=== PATIENT | female | born 2000 | race Caucasian/White ===

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

== ENCOUNTER → 2022-04-14 17:53 | Outpatient (CLI) | payer OTHER, SELFPAY ==
[2022-04-14 20:25] LABS: Urine N gonorrhoeae NOT DETECTED
[2022-04-14 20:27] LABS: Urine Chlamydia NOT DETECTED
[2022-04-15 15:31] LABS: HSV 2 IGG AB < 0.91 index (0.00-0.90)
[2022-04-15 16:07] LABS: Hepatitis B Surface Antigen NEGATIVE s/c (NEGATIVE)
[2022-04-15 16:25] LABS: HIV 1 & 2 Ab/Ag 4th Gen Combo NEGATIVE (NEGATIVE); Hep C Virus Ab w/Reflex Quant NEGATIVE s/c (NEGATIVE)
[2022-04-16 06:09] LABS: RPR Screen Non Reactive (Non Reactive)
== END ==
PROVIDERS: Family Provider Family Medicine; PCP Family Medicine; Referring Provider Nurse Practitioner Family; Visit Provider Nurse Practitioner Family
DX: Z11.3 Encounter for screening for infections with a predominantly sexual mode of transmission (principal)
CPT/HCPCS: 36415; 86592; 86695; 86696; 86803; 87340; 87389; 87491; 87591

== ENCOUNTER → 2022-06-01 14:14 | Outpatient (CLI) | payer OTHER, SELFPAY ==
[2022-06-01 15:30] LABS: Add Manual Diff / Slide Review NO; Basophils Absolute Auto 100 /uL (0-100); Basophils Percent Auto 1.3 % (0-2); Eosinophils Absolute Auto 100 /uL (0-450); Eosinophils Percent Auto 1.7 % (2-4); Hematocrit 37.3 % (36-46); Hemoglobin 12.6 g/dL (12.0-16.0); Lymphocytes Absolute Auto 2300 /uL (1100-4500); Lymphocytes Percent Auto 40.2 % (25-40); Mean Corpuscular HGB Conc 33.7 % (30-36); Mean Corpuscular Hemoglobin 30.1 PG (26-34); Mean Corpuscular Volume 89.1 fL (80-100); Monocytes Absolute Auto 500 /uL (0-900); Monocytes Percent Auto 8.2 % (3-14); Neutrophils Absolute Auto 2800 /uL (1500-7000); Neutrophils Percent Auto 48.6 % (50-75); Platelet Count 285 X10^3/uL (150-400); Red Blood Cell Count 4.19 X10^6/uL (4.0-5.2); Red Cell Distribution Width 13.3 % (11.6-14.8); White Blood Cell Count 5.7 X10^3/uL (4.5-11.0)
[2022-06-01 16:15] LABS: HEMOLYSIS < 15 (0-50); Iron 81 ug/dL (37-170)
[2022-06-01 16:18] LABS: Alanine Aminotransferase 14 IU/L (<35); Albumin 4.4 g/dL (3.5-5.0); Albumin Globulin Ratio 1.5 (1.0-2.8); Alkaline Phosphatase 63 U/L (38-126); Aspartate Aminotransferase 19 IU/L (14-36); BUN Creatinine Ratio 19.8 (6-22); Bilirubin Total 0.9 mg/dL (0.2-1.3); Blood Urea Nitrogen 18 mg/dL (7-17); Calcium 8.9 mg/dL (8.4-10.2); Carbon Dioxide 27 mmol/L (22-32); Chloride 103 mmol/L (98-107); Estimated Glomerular Filt Rate > 60 mL/min (>60); Globulin 2.9 g/dL (1.7-4.1); Glucose 82 mg/dL (70-100); HEMOLYSIS < 15 (0-50); Potassium 4.1 mmol/L (3.4-5.1); Sodium 139 mmol/L (137-145); Total Protein 7.3 g/dL (6.3-8.2)
[2022-06-01 16:25] LABS: Percent Iron Saturation 26 % (15-50); Total Iron Binding Capacity 312 ug/dL (265-497); Transferrin 227 mg/dL (206-381)
[2022-06-01 16:34] LABS: Free T3, Triiodothyronine Free 4.85 pg/mL (2.77-5.27)
[2022-06-01 16:47] LABS: TSH w/ Reflex to FT4 0.52 uIU/mL (0.47-4.68)
[2022-06-01 16:51] LABS: Ferritin 56 ng/mL (6-137)
[2022-06-01 17:05] LABS: Vitamin B12 445 pg/mL (239-931)
== END ==
PROVIDERS: Family Provider Family Medicine; PCP Family Medicine; Referring Provider Physician Assistant; Visit Provider Physician Assistant
DX: R23.3 Spontaneous ecchymoses (principal); R53.83 Other fatigue
CPT/HCPCS: 36415; 80053; 82607; 82728; 83540; 83550; 84443; 84481; 85025

== ENCOUNTER 2024-02-01 12:43 | Emergency (ER) | payer OTHER, SELFPAY ==
[2024-02-01 12:48] VITALS: BP 126/62; PULSE 102; RESP 20; TEMP 36.9; O2SAT 100; BMI 23.8
--- NOTE | 2024-02-01 12:52 | DI.RAD.S_ITS ---
PROCEDURE: XR TOE LT MIN 2V INDICATIONS: crush injury TECHNIQUE: 3 views of the great toe(s) acquired. COMPARISON: None. FINDINGS: Bones: Minimally displaced fracture involving dorsal and medial aspect of 1st distal phalangeal tuft is seen. No other fracture or dislocation. No suspicious bony lesions. Soft tissues: No suspicious soft tissue densities. Soft tissue swelling surrounding distal portion of left great toe is seen. IMPRESSION: Minimally displaced fracture involving 1st distal phalangeal tuft with surrounding soft tissue swelling. Dictated by: David Coley M.D. on 02/01/2024 at 13:36 Approved by: David Coley M.D. on 02/01/2024 at 13:37
--- NOTE | 2024-02-01 12:59 | ED.LOWEXIN ---
HPI - Extremity Injury (Lower) <Tesha Mabry PA-C - Last Filed: 02/01/24 18:25> General Chief Complaint: Extremity Injury, Lower Stated Complaint: toe laceration Time Seen by Provider: 02/01/24 12:58 Source: patient Mode of arrival: Wheelchair History of Present Illness HPI Narrative: 23-year-old female presents with concern for injury to her left great toe. Patient states she was at the gym and using weights, her friend accidentally dropped a 45 lb weight on her toe. Patient states she was pulling her foot away to attempt to avoid having to wait get dropped on it but did not get her toe out of the way and time. She states she left her shoe on and drove home when she got home and took her shoe off she realize there was bleeding around her toenail and her pain increased significantly. She came in for further evaluation. She denies numbness or tingling of the affected extremity. Foot pain ankle pain or injury. She denies any other injuries from this event today. Related Data Previous Rx's Medication Instructions Recorded levonorgestrel 21 mcg/24 hr (up to 1 insert intrauterine ONCE #1 ea 11/25/20 8 years) 52 mg intrauterine device (Mirena) permethrin 5 % topical cream 1 applic topical Q14D 2 doses #60 08/31/21 grams acyclovir 400 mg tablet 400 mg PO 5XD PRN cold sores #30 09/08/21 tabs fluconazole 150 mg tablet 150 mg PO Q3D 2 doses #2 tabs 09/08/21 mupirocin 2 % topical ointment 1 applic topical BID #22 grams 09/08/21 Allergies Allergy/AdvReac Type Severity Reaction Status Date / Time latex [LATEX] Allergy Mild RASH Verified 02/01/24 12:51 Review of Systems <Tesha Mabry PA-C - Last Filed: 02/01/24 18:25> Review of Systems Narrative: See HPI Patient History <Tesha Mabry PA-C - Last Filed: 02/01/24 18:25> Medical History Menorrhagia Healthy adolescent Concussion Surgical History No history of previous surgery Social History Smoking Status: Never smoker Smoking Status: Never smoker Exam <Tesha Mabry PA-C - Last Filed: 02/01/24 18:25> Narrative Exam Narrative: GENERAL: [23] year old patient appears stated age. Well-developed patient, in mild distress. HEAD: Atraumatic. Normocephalic. EYES: Pupils equal round and reactive. Extraocular motions intact. No scleral icterus. No injection or drainage. ENT: Nose without bleeding, purulent drainage. Airway patent. NECK: Trachea midline. CARDIOVASCULAR: Regular rate and rhythm without murmurs, gallops, or rubs. RESPIRATORY: No increased work of breathing or respiratory distress EXTREMITIES: Range of motion of the left ankle is intact. Patient is able to move the toes but moves great toe with difficulty. There is mild swelling of the great toe and there is a subungual hematoma forming under the lateral aspect of the great toenail. there is a small amount of bleeding present at the posterior nail and lateral nail. Position of the nail is well aligned. There is no obvious deformity to the toe. Patient was note tenderness with palpation of the bones of the foot significant tenderness with palpation of the great toe. skin is pink. No other edema or joint tenderness. NEURO: AOx3. SKIN: No rash or erythema of visible areas Initial Vital Signs Initial Vital Signs: Vital Signs Temperature 98.5 F 02/01/24 12:48 Pulse Rate 102 H 02/01/24 12:48 Respiratory Rate 20 02/01/24 12:48 Blood Pressure 126/62 02/01/24 12:48 Pulse Oximetry 100 02/01/24 12:48 Oxygen Delivery Method Room Air 02/01/24 12:48 <Clementina Horowitz MD - Last Filed: 02/02/24 07:32> Initial Vital Signs Initial Vital Signs: Vital Signs Temperature 98.5 F 02/01/24 12:48 Pulse Rate 102 H 02/01/24 12:48 Respiratory Rate 20 02/01/24 12:48 Blood Pressure 126/62 02/01/24 12:48 Pulse Oximetry 100 02/01/24 12:48 Oxygen Delivery Method Room Air 02/01/24 12:48 Course <Tesha Mabry PA-C - Last Filed: 02/01/24 18:25> Orders Ordered: Discontinued Medications Acetaminophen (Acetaminophen 325 Mg Tablet) 975 mg PO NOW ONE Stop: 02/01/24 13:04 Last Admin: 02/01/24 13:18 Dose: 975 mg Documented By: SELAM Ibuprofen (Ibuprofen 400 Mg Tablet) 600 mg PO NOW ONE Stop: 02/01/24 13:04 Last Admin: 02/01/24 13:18 Dose: 600 mg Documented By: SELAM Vital Signs Vital signs: Vital Signs - 8 hr 02/01/24 12:48 02/01/24 14:05 02/01/24 15:33 Temperature 98.5 F Pulse Rate 102 H 75 Pulse Rate [Left Dorsalis Pedis] 70 Respiratory Rate 20 18 Blood Pressure 126/62 131/79 Pulse Oximetry 100 99 Oxygen Delivery Method Room Air Room Air <Clementina Horowitz MD - Last Filed: 02/02/24 07:32> Orders Ordered: Discontinued Medications Acetaminophen (Acetaminophen 325 Mg Tablet) 975 mg PO NOW ONE Stop: 02/01/24 13:04 Last Admin: 02/01/24 13:18 Dose: 975 mg Documented By: SELAM Ibuprofen (Ibuprofen 400 Mg Tablet) 600 mg PO NOW ONE Stop: 02/01/24 13:04 Last Admin: 02/01/24 13:18 Dose: 600 mg Documented By: SELAM Vital Signs Vital signs: Vital Signs - 8 hr 02/01/24 12:48 02/01/24 14:05 02/01/24 15:33 Temperature 98.5 F Pulse Rate 102 H 75 Pulse Rate [Left Dorsalis Pedis] 70 Respiratory Rate 20 18 Blood Pressure 126/62 131/79 Pulse Oximetry 100 99 Oxygen Delivery Method Room Air Room Air MDM - Extremity Injury (Lower) <Tesha Mabry PA-C - Last Filed: 02/01/24 18:25> Differential Diagnosis Differential diagnosis: Likely fracture of toe and other ( sprain, strain, crush injury) Medical Records Attestation: I reviewed the patient's medical records. Imaging Data Extremity x-ray #1: Radiologist's Impression: [address] [address] XRay Report Signed Patient: Kayleen Alegria MR#: [id number] : 2000 Acct:[id number] Age/Sex: 23 / F Date of Service: 02/01/24 Loc: ED Accession Number: [id number] Procedure: XR toe LT min 2V Ordering Provider: Clementina Horowitz MD PROCEDURE: XR TOE LT MIN 2V INDICATIONS: crush injury TECHNIQUE: 3 views of the great toe(s) acquired. COMPARISON: None. FINDINGS: Bones: Minimally displaced fracture involving dorsal and medial aspect of 1st distal phalangeal tuft is seen. No other fracture or dislocation. No suspicious bony lesions. Soft tissues: No suspicious soft tissue densities. Soft tissue swelling surrounding distal portion of left great toe is seen. IMPRESSION: Minimally displaced fracture involving 1st distal phalangeal tuft with surrounding soft tissue swelling. Dictated by: David Coley M.D. on 02/01/2024 at 13:36 Approved by: David Coley M.D. on 02/01/2024 at 13:37 MDM Narrative Medical decision making narrative: This is a healthy 23-year-old woman presenting with concern for injury to her left great toe sustained when he 45 lb weight was dropped on it at the gym. This occurred today just prior to arrival. X-ray does show a tuft fracture of the great toe. exam is consistent with this. Patient was placed in an orthopedic boot for protection and provided with crutches.Tylenol and ibuprofen was provided shortly after arrival which improved pain. Patient was advised to use elevation and keep the area protected with a boot. Likely the great toenail may ultimately fall off or grow out abnormally. We also discussed possibility of subungual hematoma worsening and possibility she may need need nail trephination. She is in understanding. Advised to follow up with her PCP. Return precautions provided, follow-up plan discussed, all questions answered. Discharge Plan Departure Patient Disposition: Home Clinical Impression: Crush injury Fracture of toe Qualifiers: Encounter type: initial encounter Toe: great toe Fracture type: closed Phalanx: distal Fracture alignment: nondisplaced Laterality: left Qualified Code(s): S92.425A - Nondisplaced fracture of distal phalanx of left great toe, initial encounter for closed fracture Activity Restrictions/Additional Instructions: *You have been diagnosed with [ Tuft fracture of your left toe] *What to do: *Please continue to take your regular medications as directed. [ ] New medication prescriptions sent to your pharmacy: [ ] [ ] New medication written as a paper prescription [X ] No new medications given *Please follow up with your primary care provider in 2-3 days, call for an appointment. Let them know you were seen in the Emergency Department and that we ask that you be seen in follow up. We will electronically transmit a record of today's note if your PCP is in our system. you do have a fracture of your distal toe called a tuft fracture, this is something that does not require surgery. It would be reasonable for you to follow up with Orthopedics however it is also appropriate for you to follow up with your primary care for this. It may take some time to heal at least 3 weeks before you are feeling okay with normal weight-bearing on this foot. We have provided you with crutches and a supportive Orthopedic boot. Do monitor for signs of infection and use Tylenol and ibuprofen as needed for pain. Elevation will also be very helpful. I have provided you with a work note as well today so that you can be out until you have had a chance to do some healing since you are on your feet in your [employer] job it is not reasonable for you to be at work in the immediate short term. 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 *If you do not have a primary care provider please contact the [facility] Resource line at [phone]. They will ask some questions about your medical history and help get you set up with a doctor in the community. *Return to Emergency Department if you should have any new, worsening or concerning symptoms, such as [fever greater than 101 F, shaking chills, worsening pain, persistent vomiting or other bothersome symptoms] Prescriptions: No Action Mirena 20 mcg/24 hours (6 yrs) 52 mg intrauterine device 1 insert intrauterine ONCE Qty: 1 0RF Rx Instructions: Due out 11/25/25 acyclovir 400 mg tablet 400 mg PO 5XD PRN (Reason: cold sores) Qty: 30 3RF Rx Instructions: while awake; give 5 doses in 24 hours mupirocin 2 % ointment 1 applic topical BID Qty: 22 0RF Rx Instructions: apply to affected area fluconazole 150 mg tablet 150 mg PO Q3D Qty: 2 0RF Rx Instructions: If still experiencing symptoms, take second dose 72 hrs after first dose permethrin 5 % cream 1 applic topical Q14D Qty: 60 0RF Rx Instructions: apply second treatment 14 days after first treatment if live lice remain Referrals: Maribel Man DO [Primary Care Provider] - Stand Alone Forms: Patient Portal/API/Survey, Work Release Note ED Sign-out <Clementina Horowitz MD - Last Filed: 02/02/24 07:32> Cosign ED Attending Cosignature Attestation: I was immediately available in the department for consultation throughout this patient's visit. Clementina Horowitz MD
[2024-02-01] MEDS: ACETAMINOPHEN 325 MG TABLET 975 MG PO (13:18)
[2024-02-01] MEDS: IBUPROFEN 400 MG TABLET 600 MG PO (13:18)
[2024-02-01 14:05] VITALS: PULSE 70
[2024-02-01 15:33] VITALS: BP 131/79; PULSE 75; RESP 18; O2SAT 99
== END 2024-02-01 15:25 | disposition home or self-care (01) ==
PROVIDERS: Emergency Provider Student in an Organized Health Care Education/Training Program; Family Provider Family Medicine; PCP Family Medicine
DX: S97.112A Crushing injury of left great toe, initial encounter (principal); S92.425A Nondisplaced fracture of distal phalanx of left great toe, initial encounter for closed fracture; W20.8XXA Other cause of strike by thrown, projected or falling object, initial encounter; Y92.39 Other specified sports and athletic area as the place of occurrence of the external cause
CPT/HCPCS: 73660; 99283

== ENCOUNTER → 2024-05-14 14:58 | Outpatient (CLI) | payer OTHER, SELFPAY | PROVIDERS: Family Provider Family Medicine; PCP Family Medicine; Visit Provider Family Medicine | DX: Z11.3 Encounter for screening for infections with a predominantly sexual mode of transmission (principal) | CPT/HCPCS: 87491; 87563; 87591 ==

== ENCOUNTER 2024-05-28 02:34 | Emergency (ER) | payer OTHER, SELFPAY ==
[2024-05-28 02:40] VITALS: BP 131/90; PULSE 138; RESP 20; TEMP 37.8; O2SAT 96; BMI 24.7
--- NOTE | 2024-05-28 02:41 | DI.RAD.S_ITS ---
PROCEDURE: XR CHEST 1V INDICATIONS: cough TECHNIQUE: One view of the chest was acquired. COMPARISON: [facility], , CHEST 2 VIEW, 05/10/2010, 3:23. FINDINGS: Surgical changes and devices: None. Lungs and pleura: Lungs are clear. No pleural effusions or pneumothorax. Mediastinum: Mediastinal contours appear normal. Heart size is normal. Bones and chest wall: No suspicious bony lesions. Overlying soft tissues appear unremarkable. IMPRESSION: No acute cardiopulmonary abnormalities or focal consolidation. No significant discrepancy with the shift lab technician radiology preliminary report. Dictated by: Shad Wallis M.D. on 05/28/2024 at 7:02 Approved by: Shad Wallis M.D. on 05/28/2024 at 7:02
--- NOTE | 2024-05-28 02:44 | ED_ITS ---
HPI - URI/Sore Throat General Chief Complaint: Upper Respiratory Symptoms Stated Complaint: vomiting, sore throat, headache, watery eyes Time Seen by Provider: 05/28/24 02:40 Source: patient Mode of arrival: Ambulatory History of Present Illness HPI Narrative: 23-year-old female without any significant past medical history comes into the ED from home for evaluation of multiple complaints. Patient states that for the past 2 days she has been having flu-like symptoms. She describes her symptoms as a sore throat, headache, cough with posttussive emesis, as well as will runny/watery eyes. But denies any visual disturbances. She denies any actual chest pain shortness of breath or abdominal pain, denies any recent travel no known sick contacts. She states that the worse thing that is bothering her currently is her sore throat. However she is able to talk in full sentences, tolerating secretions protecting airway, no voice changes no stridor no trismus. She does state however that she feels like she is losing her voice. Related Data Home Medications Medication Instructions Recorded Confirmed clindamycin 1 %-benzoyl peroxide 5 topical 04/16/24 05/14/24 % topical gel sulfacetamide sodium (acne) 10 % topical 04/16/24 05/14/24 lotion (suspension) Previous Rx's Medication Instructions Recorded levonorgestrel 21 mcg/24 hr (up to 1 insert intrauterine ONCE #1 ea 11/25/20 8 years) 52 mg intrauterine device (Mirena) acyclovir 400 mg tablet 400 mg PO 5XD PRN cold sores #30 09/08/21 tabs benzocaine 20 % mucosal spray 1 applic mucous membrane QD-BID 05/28/24 PRN mouth irritation 5 days #2 ea benzonatate 100 mg capsule 100 mg PO TID 1 week #21 caps 05/28/24 ibuprofen 600 mg tablet 600 mg PO Q8H PRN pain 1 week #21 05/28/24 tabs Allergies Allergy/AdvReac Type Severity Reaction Status Date / Time latex [LATEX] Allergy Mild RASH Verified 04/16/24 13:51 Review of Systems Review of Systems Narrative: General: Denies fever, chills, weight loss HEENT: Positive sore throat, loss of voice, Denies headache, eye drainage, eye irritation, head trauma, Cardiovascular: Denies any chest pain, palpitations, tachycardia Respiratory: Positive cough, Denies any shortness of breath,wheeze, stridor GI/: Positive nausea, vomiting Denies any abdominal pain, diarrhea, bright red blood per rectum, melanotic stools, urinary frequency, urinary retention, dysuria, hematuria MSK: Denies any joint pain, muscle pains, swelling Skin: Denies any rashes, lesions, discoloration Neuro: Denies any headache, lightheadedness, dizziness, fainting, weakness Psych: Denies SI/HI Patient History Medical History Menorrhagia Healthy adolescent Concussion Surgical History No history of previous surgery Social History Smoking Status: Never smoker Smoking Status: Never smoker Exam Narrative Exam Narrative: General: Cooperative,well-developed, not in acute distress HEENT: Normocephalic, atraumatic, PERRLA, normal sclera, eyelids normal, cervical lymphadenopathy noted to the anterior chain, posterior oropharynx is clear without any signs of obstruction exudate uvula is midline patient is speaking in full sentences protecting airway no stridor no trismus Neck: Active full range of motion, atraumatic Chest: Normal to inspection, negative crepitus, no overlying erythema ecchymosis Respiratory: Coughing on exam, Normal respiratory effort, not in acute respiratory distress, clear to auscultation bilaterally negative wheeze, tachypnea, rhonchi, rales Cardiology: Regular rate rhythm negative gallop, murmur, rubs GI/: Normal to inspection, soft, nonrigid, no tenderness to palpation, exam deferred MSK: Full range of active range of motion of all 4 extremities, atraumatic Skin: No rashes lesions noted Neuro: Alert awake oriented x3, moves all 4 extremities spontaneously, cranial nerves intact, able to answer all questions appropriately follows commands appropriately Psych: Cooperative, negative suicidal or homicidal ideations Initial Vital Signs Initial Vital Signs: Vital Signs Temperature 100.1 F H 05/28/24 02:40 Pulse Rate 138 H 05/28/24 02:40 Respiratory Rate 20 05/28/24 02:40 Blood Pressure 131/90 03/31/25 02:40 Pulse Oximetry 96 05/28/24 02:40 Oxygen Delivery Method Room Air 05/28/24 02:40 Course Orders Ordered: ED Orders 05/28/24 02:41 CXR [XR chest 1V] Stat 05/28/24 02:53 CBC Auto Diff [Complete Blood Count AUTO DIFF] Stat CMP [Comprehensive Metabolic Panel] Stat Covid-19 + FLU A/B + RSV - PCR Stat MAG [Magnesium] Stat Monotest Stat 05/28/24 03:16 Strep Grp A by PCR Rapid Stat Discontinued Medications Dexamethasone (Dexamethasone 10 Mg/Ml Vial) 10 mg IV NOW ONE Stop: 05/28/24 02:42 Last Admin: 05/28/24 03:07 Dose: 10 mg Documented By: MELI Sodium Chloride (Normal Saline 0.9%) 1,000 mls @ 1,000 mls/hr IV BOLUS ONE Stop: 05/28/24 03:42 Last Infusion: 05/28/24 03:50 Dose: Infused Documented By: Admin: 05/28/24 03:08 Dose: 1,000 mls/hr Documented By: MELI Ketorolac Tromethamine (Ketorolac 30 Mg/Ml Vial) 30 mg IV NOW ONE Stop: 05/28/24 02:42 Last Admin: 05/28/24 03:07 Dose: 30 mg Documented By: MELI Vital Signs Vital signs: Vital Signs - 8 hr 05/28/24 02:40 05/28/24 03:09 05/28/24 03:30 Temperature 100.1 F H Pulse Rate 138 H 119 H 116 H Respiratory Rate 20 16 Blood Pressure 131/90 131/90 Pulse Oximetry 96 95 96 Oxygen Delivery Method Room Air Room Air MDM - URI/Sore Throat Differential Diagnosis Differential diagnosis: Likely upper respiratory infection, bronchitis, influenza and other (Electrolyte abnormality, pneumonia, strep throat, mono) Lab Data 05/28/24 02:53 05/28/24 02:53 Labs: Lab Results 05/28/24 05/28/24 Range/Units 02:53 03:16 WBC 14.6 H (4.5-11.0) X10^3/uL RBC 4.69 (4.0-5.2) X10^6/uL Hgb 14.2 (12.0-16.0) g/dL Hct 42.5 (36-46) % MCV 90.6 (80-100) fL MCH 30.3 (26-34) PG MCHC 33.5 (30-36) % RDW 12.8 (11.6-14.8) % Plt Count 289 (150-400) X10^3/uL Neut % (Auto) 81.9 H (50-75) % Lymph % (Auto) 6.4 L (25-40) % [place] % (Auto) 11.5 (3-14) % Eos % (Auto) 0.0 L (2-4) % Baso % (Auto) 0.2 (0-2) % Neut # (Auto) 09565 H (7097-9066) /uL Lymph # (Auto) 900 L (2703-5957) /uL [place] # (Auto) 1700 H (0-900) /uL Eos # (Auto) 0 (0-450) /uL Baso # (Auto) 0 (0-100) /uL Sodium 136 L (137-145) mmol/L Potassium 4.2 (3.4-5.1) mmol/L Chloride 104 (98-107) mmol/L Carbon Dioxide 23 (22-32) mmol/L BUN 15 (7-17) mg/dL Creatinine 0.81 (0.52-1.04) mg/dL Estimated GFR > 60 (>60) mL/min BUN/Creatinine Ratio 18.5 (6-22) Glucose 113 H (70-100) mg/dL Calcium 8.7 (8.4-10.2) mg/dL Magnesium 2.0 (1.6-2.3) mg/dL Total Bilirubin 0.6 (0.2-1.3) mg/dL AST 28 (14-36) IU/L ALT 24 (<35) IU/L Alkaline Phosphatase 77 (38-126) U/L Total Protein 7.2 (6.3-8.2) g/dL Albumin 4.3 (3.5-5.0) g/dL Globulin 2.9 (1.7-4.1) g/dL Albumin/Globulin Ratio 1.5 (1.0-2.8) SARS-CoV-2 (PCR) Negative (Negative) Monoscreen Negative (Negative) Influenza A (RT-PCR) Flu a negative (NEGATIVE) Influenza B (RT-PCR) Flu b negative (NEGATIVE) RSV (PCR) Negative (Negative) Group A Strep (PCR) Negative (Negative) Imaging Data Chest x-ray: Radiologist's Impression: Preliminary read showing no acute cardiopulmonary processes MDM Narrative Medical decision making narrative: 23-year-old female presenting for flu-like symptoms which include headache without visual changes, watery eyes, cough, nausea, vomiting, sore throat. On exam patient is speaking full sentences protecting airway posterior oropharynx is clear without any signs of obstruction. Patient was given 1 L normal saline, Tylenol, Toradol, Decadron for symptomatic relief. Patient had lab work, respiratory panel and chest x-ray performed here. [place] test was negative. Patients labwork showing WBC of 14.6, sodium 136, creatinine 0.81, BUN 18.5, GFR greater than 60 magnesium 2.0, AST 28, ALT 24. Respiratory panel negative, strep test negative. Patient did have improvement of her symptoms here in the emergency department but states that she is still having some body aches and sore throat. We will send patient home with symptomatic relief instructed to follow up with primary care in outpatient setting symptoms more likely viral in nature, she verbalized understanding of this and agrees to being discharged home with outpatient follow up. Discharge Plan Departure Patient Disposition: Home Clinical Impression: Pharyngitis with viral syndrome Instructions: DI for Viral Pharyngitis Activity Restrictions/Additional Instructions: Please follow up with your primary care doctor Please read the discharge instructions sheet carefully and bring all papers to all doctor follow-up visits, as it may contain information that your doctor may want to see. Disease processes change and evolve, if your symptoms worsen or if you develop any new symptoms that are concerning to you please return for evaluation. Your evaluation today does not show any evidence of any life- threatening/serious illnesses requiring admission to the hospital or surgery. Please follow-up with your doctor for re-evaluation in approximately 1 day. Seek immediate medical attention for any worrisome symptoms. *If you do not have a primary care provider please contact the [facility] Resource line at [phone]. They will ask some questions about your medical history and help get you set up with a doctor in the community. Prescriptions: New benzocaine 20 % spray,non-aerosol 1 applic mucous membrane QD-BID PRN (Reason: mouth irritation) 5 Days Qty: 2 0RF benzonatate 100 mg capsule 100 mg PO TID 7 Days Qty: 21 0RF ibuprofen 600 mg tablet 600 mg PO Q8H PRN (Reason: pain) 7 Days Qty: 21 0RF No Action Mirena 20 mcg/24 hours (6 yrs) 52 mg intrauterine device 1 insert intrauterine ONCE Qty: 1 0RF Rx Instructions: Due out 11/25/25 acyclovir 400 mg tablet 400 mg PO 5XD PRN (Reason: cold sores) Qty: 30 3RF Rx Instructions: while awake; give 5 doses in 24 hours sulfacetamide sodium (acne) 10 % suspension topical clindamycin-benzoyl peroxide 1-5 % gel topical Referrals: Mony Isabel MD [Primary Care Provider] - Stand Alone Forms: Patient Portal/API/Survey
[2024-05-28 03:07] LABS: Add Manual Diff / Slide Review NO; Basophils Absolute Auto 0 /uL (0-100); Basophils Percent Auto 0.2 % (0-2); Eosinophils Absolute Auto 0 /uL (0-450); Hematocrit 42.5 % (36-46); Hemoglobin 14.2 g/dL (12.0-16.0); Lymphocytes Absolute Auto 900 /uL (1100-4500); Lymphocytes Percent Auto 6.4 % (25-40); Mean Corpuscular HGB Conc 33.5 % (30-36); Mean Corpuscular Hemoglobin 30.3 PG (26-34); Mean Corpuscular Volume 90.6 fL (80-100); Monocytes Absolute Auto 1700 /uL (0-900); Monocytes Percent Auto 11.5 % (3-14); Neutrophils Absolute Auto 11900 /uL (1500-7000); Neutrophils Percent Auto 81.9 % (50-75); Platelet Count 289 X10^3/uL (150-400); Red Blood Cell Count 4.69 X10^6/uL (4.0-5.2); Red Cell Distribution Width 12.8 % (11.6-14.8); White Blood Cell Count 14.6 X10^3/uL (4.5-11.0)
[2024-05-28] MEDS: DEXAMETHASONE 10 MG/ML VIAL IV (03:07)
[2024-05-28] MEDS: KETOROLAC 30 MG/ML VIAL IV (03:07)
[2024-05-28] MEDS: SODIUM CHLORIDE 0.9% 1,000 ML 1000 ML IV (03:08)
[2024-05-28 03:09] VITALS: BP 131/90; PULSE 119; RESP 16; O2SAT 95
[2024-05-28 03:10] LABS: Monotest Negative (Negative)
[2024-05-28 03:19] LABS: Alanine Aminotransferase 24 IU/L (<35); Albumin 4.3 g/dL (3.5-5.0); Albumin Globulin Ratio 1.5 (1.0-2.8); Alkaline Phosphatase 77 U/L (38-126); Aspartate Aminotransferase 28 IU/L (14-36); BUN Creatinine Ratio 18.5 (6-22); Bilirubin Total 0.6 mg/dL (0.2-1.3); Blood Urea Nitrogen 15 mg/dL (7-17); Calcium 8.7 mg/dL (8.4-10.2); Carbon Dioxide 23 mmol/L (22-32); Chloride 104 mmol/L (98-107); Estimated Glomerular Filt Rate > 60 mL/min (>60); Globulin 2.9 g/dL (1.7-4.1); Glucose 113 mg/dL (70-100); HEMOLYSIS 20 (0-50); Potassium 4.2 mmol/L (3.4-5.1); Sodium 136 mmol/L (137-145); Total Protein 7.2 g/dL (6.3-8.2)
[2024-05-28 03:30] VITALS: PULSE 116; O2SAT 96
[2024-05-28 03:42] LABS: Influenza A - CEPHEID Flu A NEGATIVE (NEGATIVE); Influenza B - CEPHEID Flu B NEGATIVE (NEGATIVE); Respiratory Syncytial Virus Negative (Negative)
[2024-05-28 03:47] LABS: Strep Grp A by PCR Rapid Negative (Negative)
[2024-05-28 03:48] LABS: COVID-19 CEPHEID 4-PLEX PCR Negative (Negative)
[2024-05-28 03:51] VITALS: BP 125/67; PULSE 126; O2SAT 96
[2024-05-28 04:00] VITALS: BP 117/63; PULSE 109; RESP 18; O2SAT 95
--- NOTE | 2024-05-28 10:46 | PC.NURSE ---
[facility] pharmacy called to say they are unable to fill benzocaine Rx. Dr. Susanna miramontesayed Lidocaine visceral spray 2% for oral swish and spit. Provided new rx verbal order to pharmacy.
== END 2024-05-28 04:12 | disposition home or self-care (01) ==
PROVIDERS: Emergency Provider Student in an Organized Health Care Education/Training Program; Family Provider Family Medicine; PCP Family Medicine
DX: J02.9 Acute pharyngitis, unspecified (principal); R05.9 Cough, unspecified; R51.9 Headache, unspecified
CPT/HCPCS: 0241U; 36415; 71045; 80053; 81025; 83735; 85025; 86318; 87651; 96361; 96374; 96375; 99284; J1100; J1885